=== PATIENT | male | born 1980 | race Caucasian/White ===

== ENCOUNTER 2018-11-17 17:39 | Emergency (ER) | payer SELFPAY ==
--- NOTE | 2018-11-17 19:39 | ER ---
Nurse's Notes [facility] Name: Jesús Squires Age: 38 yrs Sex: Male : 1980 Arrival Date: 11/17/2018 Time: 17:40 Bed Waiting Private MD: Diagnosis: Presentation: 11/17 18:02 Note Patient was seen in [facility], laceration was assessed and is currently bleeding aj1 lightly. Laceration was covered with 4x4 and secured with Coban. Patient was instructed to notify staff if he begins to bleed through the dressing. 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 Drsg remains dry and intact at this time. Transition of care: patient was not received from another setting of care. Complicating Factors: There are no complicating factors for this patient. Onset of symptoms was November 17, 2018 at 16:30. Risk Assessment: Do you want to hurt yourself or someone else? Patient reports no desire to harm self or others. Initial Sepsis Screen: Does the patient meet any 2 criteria? No. Patient's initial sepsis screen is negative. Does the patient have a suspected source of infection? No. Patient's initial sepsis screen is negative. Care prior to arrival: None. 18:05 Method Of Arrival: Ambulatory aj1 18:05 Acuity: FIDE 4 aj1 Triage Assessment: 18:06 General: Appears in no apparent distress. comfortable, Behavior is calm, cooperative, aj1 appropriate for age. Pain: Complains of pain in right hand Pain currently is 5 out of 10 on a pain scale. Neuro: Level of Consciousness is awake, alert, obeys commands, Oriented to person, place, time, situation. Cardiovascular: Patient's skin is warm and dry. Respiratory: Airway is patent Respiratory effort is even, unlabored, Respiratory pattern is regular, symmetrical. Injury Description: Laceration sustained to right hand. Historical: - Allergies: 18:06 PENICILLINS; aj1 - Home Meds: 18:06 None [Active]; aj1 - PMHx: 18:06 None; aj1 - PSHx: 18:06 skin grafts on legs; aj1 - Immunization history:: Flu vaccine is not up to date. - Social history:: Smoking status: Patient uses tobacco products, smokes one-half pack cigarettes per day. - Ebola Screening: : Patient denies travel to an Ebola-affected area in the 21 days before illness onset. Vital Signs: 18:06 BP 140 / 82; Pulse 105; Resp 20; Temp 98.3; Pulse Ox 100% on R/A; Weight 68.04 kg (R); aj1 Height 5 ft. 9 in. (175.26 cm) (R); Pain 5/10; 18:06 Body Mass Index 22.15 (68.04 kg, 175.26 cm) aj1 ED Course: 17:40 Patient arrived in ED. as 18:06 Triage completed. aj1 18:06 Arm band placed on Patient placed in waiting room, Patient notified of wait time. aj1 19:06 Josey Matos FNP-C [facility] kb 19:06 Travon Adam MD is Attending Physician. kb 19:11 Patient's name was called from ER lobby. No response. kofi Administered Medications: No medications were administered Outcome: 19:38 Patient left the ED. em1 Signatures: Josey Matos FNP-C FNP-Ckb Johnson, Angela, RN RN aj1 Martinez, Amelia as Ballard, Brenda, RN RN bb Martinez, Eric em1
[2018-11-18 01:11] VITALS: BP 140/82; TEMP 98.3; O2SAT 100
== END 2018-11-17 19:38 | disposition left against medical advice (07) ==
LOC: ER 17:39
DX: Z53.21 Procedure and treatment not carried out due to patient leaving prior to being seen by health care provider (principal)
CPT/HCPCS: 99281